=== PATIENT | female | born 1995 | race American Indian/Alaskan Native ===

== ENCOUNTER 2019-10-05 17:06 | Emergency (ER) | payer SELFPAY ==
--- NOTE | 2019-10-05 18:11 | Event Note ---
ED Screening Note Date of service: 10/05/19 (n) ED Screening Note: cc of lft eye swelling and generalized bumps to body This initial assessment/diagnostic orders/clinical plan/treatment(s) is/are subject to change based on patients health status, clinical progression and re- assessment by fellow clinical providers in the ED. Further treatment and workup at subsequent clinical providers discretion. Patient/guardian urged not to elope from the ED as their condition may be serious if not clinically assessed and managed. Initial orders include:
[2019-10-05] MEDS ORDERED: dexAMETHasone 20 MG/5 ML VIAL IM ONE (20:45)
[2019-10-05] MEDS ORDERED: FAMOTIDINE 20 MG TAB PO ONE (20:46)
--- NOTE | 2019-10-05 21:40 | Emergency Department Report ---
ED General Adult HPI - General Chief complaint: Skin Rash Stated complaint: BUMPS ON LEGS Source: patient Mode of arrival: Ambulatory Limitations: No Limitations - History of Present Illness Initial comments: Patient is a 23 year-old female with a history of chronic seizures who presents to the ED because of acute onset persistent erythematous maculopapular rashes on the lower and upper extremities on the left eyelid swelling for the last 2 days with no known etiology. Patient is a complaint of nausea and vomiting intermittently for 2 days. Patient states that the rashes on the swelling worsen in the last 12 hours. Patient denies insect bites, dizziness, fever, chills, change in vision, syncope, headache, cough, nasal and sinus congestion, swollen lips and tongue, swollen throat, dysphagia, dysphonia, wheezing and cough, chest and, shortness of breath or diarrhea. MD Complaint: Diffuse erythematous swollen rashes on bilateral lower legs, face and arms -: Sudden, days(s) (2) Location: face, upper extremity (bilateral arms), lower extremity (bilaterally) Radiation: non-radiation Severity scale (0 -10): 3 Quality: aching, dull Consistency: constant Improves with: none Worsens with: none Associated Symptoms: denies other symptoms, rash (diffuse). denies: confusion, chest pain, cough, diaphoresis, fever/chills, loss of appetite, malaise, nausea/vomiting, seizure, shortness of breath, syncope, weakness Treatments Prior to Arrival: none - Related Data Previous Rx's Medication Instructions Recorded Last Taken Type Famotidine [Pepcid] 20 mg PO Q12H #30 tablet 10/05/19 Unknown Rx methylPREDNISolone [Medrol 4MG 4 mg PO DAILY #21 tab.ds.pk 10/05/19 Unknown Rx DOSEPAK (21 tabs)] Allergies Allergy/AdvReac Type Severity Reaction Status Date / Time diphenhydramine Allergy Hives Verified 10/05/19 17:11 pineapple Allergy Swelling Verified 10/05/19 17:11 red dye Allergy Itching Verified 10/05/19 17:11 ED Review of Systems ROS: Stated complaint: BUMPS ON LEGS Other details as noted in HPI Constitutional: denies: chills, fever Eyes: other (left eyelid swelling). denies: eye pain, eye discharge, vision change ENT: denies: ear pain, throat pain Respiratory: denies: cough, shortness of breath, SOB with exertion, wheezing Cardiovascular: denies: chest pain, palpitations, dyspnea on exertion, syncope, paroxysmal nocturnal dyspnea Endocrine: no symptoms reported. denies: see HPI, flushing, intolerance to cold, intolerance to heat, increased hunger, increased urine, unexplained weight loss Gastrointestinal: denies: abdominal pain, nausea, diarrhea Genitourinary: denies: urgency, dysuria, discharge Musculoskeletal: denies: back pain, joint swelling, arthralgia Skin: rash, change in color, other (Erythematous, swollen rashes on legs and arms, face). denies: lesions Neurological: denies: headache, weakness, paresthesias Psychiatric: denies: anxiety, depression Hematological/Lymphatic: denies: easy bleeding, easy bruising ED Past Medical Hx - Past Medical History Previous Medical History?: No - Surgical History Past Surgical History?: No - Social History Smoking Status: Never Smoker Substance Use Type: None - Medications Home Medications: Home Medications Medication Instructions Recorded Confirmed Last Taken Type Famotidine [Pepcid] 20 mg PO Q12H #30 tablet 10/05/19 Unknown Rx methylPREDNISolone [Medrol 4MG 4 mg PO DAILY #21 tab.ds.pk 10/05/19 Unknown Rx DOSEPAK (21 tabs)] ED Physical Exam - General Limitations: No Limitations General appearance: alert, in no apparent distress - Head Head exam: Present: atraumatic, normocephalic, normal inspection - Eye Eye exam: Present: normal appearance, PERRL, EOMI, other (swollen left eyelids) Pupils: Present: normal accommodation - ENT ENT exam: Present: normal exam, normal orophraynx, mucous membranes moist, TM's normal bilaterally, normal external ear exam - Neck Neck exam: Present: normal inspection, full ROM. Absent: tenderness, meningismus, lymphadenopathy, thyromegaly - Respiratory Respiratory exam: Present: normal lung sounds bilaterally. Absent: respiratory distress, wheezes, rales, rhonchi, stridor, chest wall tenderness, accessory muscle use, prolonged expiratory - Cardiovascular Cardiovascular Exam: Present: normal rhythm, tachycardia, normal heart sounds. Absent: systolic murmur, diastolic murmur, rubs, gallop - GI/Abdominal GI/Abdominal exam: Present: soft, normal bowel sounds. Absent: tenderness, guarding, rebound, hyperactive bowel sounds, hypoactive bowel sounds, organomegaly, mass, pulsatile mass - Extremities Exam Extremities exam: Present: normal inspection, full ROM, normal capillary refill, other (Diffuse erythematous swollen rashes on lower extremities and upper extremities) - Back Exam Back exam: Present: normal inspection, full ROM. Absent: tenderness, CVA tenderness (R), muscle spasm, paraspinal tenderness - Neurological Exam Neurological exam: Present: alert, oriented X3, CN II-XII intact, normal gait, reflexes normal - Psychiatric Psychiatric exam: Present: normal affect, normal mood - Skin Skin exam: Present: warm, dry, intact, rash, erythema, urticaria, vesicles, other (Erythematous swollen palpable rashes on lower and upper extremities) ED Course Vital Signs 10/05/19 10/05/19 18:06 22:33 Temperature 99 F 99.4 F Pulse Rate 119 H 105 H Respiratory 16 15 Rate Blood Pressure 136/82 Blood Pressure 119/71 [Left] O2 Sat by Pulse 100 97 Oximetry - Reevaluation(s) Reevaluation #1: 10/05/19 23:00 This is a 23-year-old female who presented to the ED with erythematous maculopapular rash on lower and upper extremities, left eyelid swelling and nausea and vomiting. In the ED, patient is alert and oriented 3, tachycardic, anxious but in no acute distress. Patient is treated with Decadron and Pepcid in the ED and on reevaluation, tachycardia improved significantly patient feeling better. Patient discharged home Medrol Dosepak, and Pepcid and advised to follow-up with her primary care physician in 3-5 days for reevaluation or return to the ED immediately if symptoms get worse. ED Medical Decision Making - Medical Decision Making This is a 23-year-old female who presented to the ED with erythematous maculopapular rash on lower and upper extremities, left eyelid swelling and nausea and vomiting. In the ED, patient is alert and oriented 3, tachycardic, anxious but in no acute distress. Patient is treated with Decadron and Pepcid in the ED and on reevaluation, tachycardia improved significantly patient feeling better. Patient discharged home Medrol Dosepak, and Pepcid and advised to follow-up with her primary care physician in 3-5 days for reevaluation or return to the ED immediately if symptoms get worse. - Differential Diagnosis acute urticaria; allergic reaction; nonspecific rashes Critical care attestation.: If time is entered above; I have spent that time in minutes in the direct care of this critically ill patient, excluding procedure time. ED Disposition Clinical Impression: Rash and other nonspecific skin eruption Acute allergic reaction Qualifiers: Encounter type: initial encounter Qualified Code(s): T78.40XA - Allergy, unspecified, initial encounter Disposition: TO HOME OR SELFCARE Is pt being admited?: No Does the pt Need Aspirin: No Condition: Stable Instructions: Urticaria (ED), Allergies (ED) Additional Instructions: Take medication with food, drink plenty of fluids and follow-up with the primary physician in 3-5 days for reevaluation. Return to the ED immediately if symptoms get worse. Prescriptions: methylPREDNISolone [Medrol 4MG DOSEPAK (21 tabs)] 4 mg PO DAILY #21 tab.ds.pk Famotidine [Pepcid] 20 mg PO Q12H #30 tablet Referrals: PRIMARY CARE, [Primary Care Provider] - 3-5 Days Time of Disposition: 21:43 Print Language: AMHARIC
[2019-10-05 22:34] VITALS: BP 119/71
== END 2019-10-05 23:10 | disposition home or self-care (01) ==
LOC: ED 17:06
DX: T78.40XA Allergy, unspecified, initial encounter (principal); Z91.041 Radiographic dye allergy status; Z91.018 Allergy to other foods; Z88.8 Allergy status to other drugs, medicaments and biological substances; X58.XXXA Exposure to other specified factors, initial encounter; Z79.899 Other long term (current) drug therapy
CPT/HCPCS: 93005; 93010; 96372; 99282; J1100

== ENCOUNTER 2020-12-09 17:36 | Emergency (ER) | payer SELFPAY ==
[2020-12-09 17:50] VITALS: BP 118/84
[2020-12-09] MEDS ORDERED: LIDOCAINE-MPF (1%) 10 MG/1 ML VIAL 5 ML INFILTRATI ONE (19:37)
--- NOTE | 2020-12-09 19:38 | Emergency Department Report ---
- General Chief complaint: Skin/Abscess/Foreign Body Stated complaint: LT OUTER EAR SWOLLEN Time Seen by Provider: 12/09/20 19:36 Source: patient Mode of arrival: Ambulatory Limitations: No Limitations - History of Present Illness Initial comments: Patient is a 25-year-old female presents emergency room with complaints of an abscess in front of the left ear that began 4 days ago. She states the swelling and pain became worse since yesterday. She denies any drainage. She states that she has a preauricular opening since which occasionally drains but she has never had an abscess formation in the past. She denies any I&D previously. She denies any fever, chills, vomiting, diarrhea, drainage. She denies any known past medical history. Allergy to Benadryl and red dye. she states that she frequently gets overheated, and sweats, and does not gain weight. - Related Data Previous Rx's Medication Instructions Recorded Last Taken Type Famotidine [Pepcid] 20 mg PO Q12H #30 tablet 10/05/19 Unknown Rx methylPREDNISolone [Medrol 4MG 4 mg PO DAILY #21 tab.ds.pk 10/05/19 Unknown Rx DOSEPAK (21 tabs)] Naproxen [EC-Naproxen] 500 mg PO BID PRN #14 tablet. 12/09/20 Unknown Rx Sulfamethoxazole/Trimethoprim 1 each PO BID 7 Days #14 tablet 12/09/20 Unknown Rx [Bactrim DS TAB] Allergies Allergy/AdvReac Type Severity Reaction Status Date / Time diphenhydramine Allergy Hives Verified 10/05/19 17:11 pineapple Allergy Swelling Verified 10/05/19 17:11 red dye Allergy Itching Verified 10/05/19 17:11 Abscess Boil HPI - HPI Chief Complaint: Skin/Abscess/Foreign Body Stated Complaint: LT OUTER EAR SWOLLEN Time Seen by Provider: 12/09/20 19:36 Home Medications: Previous Rx's Medication Instructions Recorded Last Taken Type Famotidine [Pepcid] 20 mg PO Q12H #30 tablet 10/05/19 Unknown Rx methylPREDNISolone [Medrol 4MG 4 mg PO DAILY #21 tab.ds.pk 10/05/19 Unknown Rx DOSEPAK (21 tabs)] Naproxen [EC-Naproxen] 500 mg PO BID PRN #14 tablet. 12/09/20 Unknown Rx Sulfamethoxazole/Trimethoprim 1 each PO BID 7 Days #14 tablet 12/09/20 Unknown Rx [Bactrim DS TAB] Allergies/Adverse Reactions: Allergies Allergy/AdvReac Type Severity Reaction Status Date / Time diphenhydramine Allergy Hives Verified 10/05/19 17:11 pineapple Allergy Swelling Verified 10/05/19 17:11 red dye Allergy Itching Verified 10/05/19 17:11 ED Review of Systems ROS: Stated complaint: LT OUTER EAR SWOLLEN Other details as noted in HPI Comment: All other systems reviewed and negative ED Past Medical Hx - Past Medical History Previous Medical History?: No - Surgical History Past Surgical History?: No - Social History Smoking Status: Never Smoker Substance Use Type: None - Medications Home Medications: Home Medications Medication Instructions Recorded Confirmed Last Taken Type Famotidine [Pepcid] 20 mg PO Q12H #30 tablet 10/05/19 Unknown Rx methylPREDNISolone [Medrol 4MG 4 mg PO DAILY #21 tab.ds.pk 10/05/19 Unknown Rx DOSEPAK (21 tabs)] Naproxen [EC-Naproxen] 500 mg PO BID PRN #14 tablet. 12/09/20 Unknown Rx Sulfamethoxazole/Trimethoprim 1 each PO BID 7 Days #14 tablet 12/09/20 Unknown Rx [Bactrim DS TAB] ED Physical Exam - General Limitations: No Limitations General appearance: alert, in no apparent distress - Eye Eye exam: Present: normal appearance - ENT ENT exam: Present: mucous membranes moist, other (2 cm area of induration and fluctuance present in the preauricular region, no drainage, there is a small opening which is consistent with pts hx of preauricular opening but no drainage, no invovlement of the ear or rest of the face) - Respiratory Respiratory exam: Absent: respiratory distress, accessory muscle use - Neurological Exam Neurological exam: Present: alert, oriented X3 - Psychiatric Psychiatric exam: Present: normal affect, normal mood - Skin Skin exam: Present: warm, dry ED Course Vital Signs 12/09/20 12/09/20 17:48 20:04 Temperature 99.0 F Pulse Rate 139 H 107 H Respiratory 18 18 Rate Blood Pressure 118/84 [Right] O2 Sat by Pulse 100 100 Oximetry - I & D Left Face Type of Procedure: Simple Site: left preauricular region Blade Size: 11 I & D Procedure: betadine prep, sterile drapes applied, sterile dressing applied Progress: Skin prepped with Betadine, sterile drapes applied, 2 cc of 1% lidocaine without epinephrine used as anesthetic, 0.5 cm incision made, moderate amount of purulent drainage, irrigated with saline, patient tolerated well, no complications, bleeding controlled, sterile dressing applied ED Medical Decision Making - Lab Data Vital Signs 12/09/20 12/09/20 17:48 20:04 Temperature 99.0 F Pulse Rate 139 H 107 H Respiratory 18 18 Rate Blood Pressure 118/84 [Right] O2 Sat by Pulse 100 100 Oximetry - Medical Decision Making Patient is a 25-year-old female presents emergency room with complaints of an abscess in front of the left ear that began 4 days ago. She states the swelling and pain became worse since yesterday. She denies any drainage. She states that she has a preauricular opening since which occasionally drains but she has never had an abscess formation in the past. She denies any I&D previously. She denies any fever, chills, vomiting, diarrhea, drainage. She denies any known past medical history. Allergy to Benadryl and red dye. she states that she frequently gets overheated, and sweats, and does not gain weight. initial triage vitals with elevated HR which improved upon repeat. on exam:2 cm area of induration and fluctuance present in the preauricular region, no drainage, there is a small opening which is consistent with pts hx of preauricular opening but no drainage, no invovlement of the ear or rest of the face. Examination consistent with abscess, I&D performed per procedure note without any complications. Patient is not having any symptoms related to a elevated heart rate, no chest pain, no palpitations, no shortness of breath, no leg swelling, no clinical indication of thyroid storm, discussed the importance of outpatient follow-up and outpatient thyroid panel, discussed very strict return precautions with patient, she verbalized understanding. Patient given prescription for Bactrim and naproxen. Advised patient Please take medication as prescribed. Please keep area clean, dry, covered. Wash with antibacterial soap and water twice a day and pat dry. Follow-up with a primary care doctor. Please follow-up with your primary care doctor and have a thyroid panel performed. Return to emergency room immediately for any new or worsening sympto ms. Critical care attestation.: If time is entered above; I have spent that time in minutes in the direct care of this critically ill patient, excluding procedure time. ED Disposition Clinical Impression: Abscess Disposition: [id number] TO HOME OR SELFCARE Is pt being admited?: No Does the pt Need Aspirin: No Condition: Stable Instructions: Skin Abscess, [id number] Additional Instructions: Please take medication as prescribed. Please keep area clean, dry, covered. Wash with antibacterial soap and water twice a day and pat dry. Follow-up with a primary care doctor. Please follow-up with your primary care doctor and have a thyroid panel performed. Return to emergency room immediately for any new or worsening symptoms. Prescriptions: Sulfamethoxazole/Trimethoprim [Bactrim DS TAB] 1 each PO BID 7 Days #14 tablet Naproxen [EC-Naproxen] 500 mg PO BID PRN #14 tablet.dr HANNAH Reason: pain Referrals: OGDEN CHEPEGILCHRIST MD OLIVE [Primary Care Provider] - 2-3 Days BERT JAMES MD [Staff Physician] - 2-3 Days [facility] [Outside] - 2-3 Days Time of Disposition: 19:42 Print Language: SYRIAC
== END 2020-12-09 20:07 | disposition home or self-care (01) ==
LOC: ED 17:36
DX: L02.01 Cutaneous abscess of face (principal); Z79.899 Other long term (current) drug therapy; Z91.018 Allergy to other foods; Z91.030 Bee allergy status; Z88.8 Allergy status to other drugs, medicaments and biological substances
CPT/HCPCS: 99282